=== PATIENT | male | born 1935 | race Hispanic/Latino ===

== ENCOUNTER → 2023-01-14 | Outpatient (CLI) | payer OTHER ==
[~2023-01-14] MED LIST: AEC81 PO; ATOR40TA69 PO; CLOP75TA32 PO; DONE10TA43 PO; FISH1CAP20 PO; FOLI1 PO; GLUT500C6 PO; HYDR-3830 PO; IRON1CAP32 PO; LACT1CAP80 PO; LEVO100C4 PO; MEMA10TA55 PO; METF-444 PO; NITR0.4T50 SL; OMEP40CA21 PO; SENN8.6T32 PO; TAMS-1 PO; VITA1CAP85 PO
== END | disposition home or self-care (01) ==
LOC: RAH 14:36
PROVIDERS: ATTEND Internal Medicine Cardiovascular Disease
DX: I73.9 Peripheral vascular disease, unspecified (principal)
CPT/HCPCS: 93925